=== PATIENT | female | born 1995 | race Two or more races ===

== ENCOUNTER 2022-06-21 18:24 | Emergency (ER) | payer OTHER ==
[~2022-06-21] VITALS: Ht 160 cm; Wt 83.0 kg
[2022-06-21] MEDS ORDERED: ZYRTEC10 M3 (18:48)
[2022-06-21] MEDS ORDERED: PRENATALES (18:49)
[2022-06-21] MEDS ORDERED: ACIDO FOLICO (18:50)
== END 2022-06-21 21:29 | disposition home or self-care (01) ==
LOC: ER 18:24
DX: O26.892 Other specified pregnancy related conditions, second trimester (principal); Z3A.18 18 weeks gestation of pregnancy; R10.2 Pelvic and perineal pain

== ENCOUNTER 2022-11-02 08:26 | Outpatient (CLI) | payer OTHER ==
[~2022-11-02 08:26] MED LIST: ACIDO FOLICO; PRENATALES; ZYRTEC10 M3
== END 2022-11-02 09:00 | disposition home or self-care (01) ==
LOC: NST 08:26
PROVIDERS: ATTEND Obstetrics & Gynecology
DX: Z34.83 Encounter for supervision of other normal pregnancy, third trimester (principal)

== ENCOUNTER 2022-11-10 09:02 | Inpatient (IN) | payer OTHER ==
[2022-11-13] MEDS ORDERED: FOLIC ACID0.4 MG (08:42)
[2022-11-13] MEDS ORDERED: PRENATAL VITAM1 EAC7 (08:42)
== END 2022-11-13 13:32 | disposition home or self-care (01) | DRG 785 ==
LOC: OB/GYN 09:02 → LDR 09:02 → O/R 13:38 → OB/GYN 15:55
PROVIDERS: ADMIT Obstetrics & Gynecology; ATTEND Obstetrics & Gynecology
PROC: 4A1HXCZ Monitoring of Products of Conception, Cardiac Rate, External Approach (ICD-10-PCS; 2022-11-10)
PROC: 10D00Z1 Extraction of Products of Conception, Low, Open Approach (ICD-10-PCS; principal; 2022-11-11)
PROC: 0UB70ZZ Excision of Bilateral Fallopian Tubes, Open Approach (ICD-10-PCS; 2022-11-11)
DX: O82 Encounter for cesarean delivery without indication (principal); Z3A.38 38 weeks gestation of pregnancy; Z30.2 Encounter for sterilization; Z37.0 Single live birth; Z20.822 Contact with and (suspected) exposure to COVID-19